=== PATIENT | male | born 1990 | race African-American/Black ===

== ENCOUNTER 2020-04-22 09:32 | Emergency (ER) | payer OTHER ==
[2020-04-22 09:40] VITALS: BP 138/83; PULSE 68; TEMP 98; BMI 26.2
[2020-04-22 10:41] LABS: BASO % 0.9 % (0-2.0); EOS % 2.4 % (0-4.5); HEMATOCRIT 45.4 % (35.4-49); HEMOGLOBIN 15.4 GM/dL (11.7-16.9); LYMPH % 30.4 % (8-40); MCH 30.2 pg (25.7-33.7); MCHC 33.9 g/dl (32.0-35.9); MEAN CELL VOLUME 89.1 fl (80-96); MEAN PLT VOLUME 8.8 fl (7.5-11.1); MONO % 10.9 % (3.8-10.2); NEUT % 55.4 % (42.8-82.8); PLATELET COUNT 251 K/MM3 (134-434); RBC 5.09 M/mm3 (4.00-5.60); RDW 14.6 % (11.9-15.9); WHITE BLOOD COUNT 6.4 K/mm3 (4.0-10.0)
[2020-04-22 10:44] LABS: INR 1.01 (0.83-1.09); PROTHROMBIN TIME (PATIENT) 12.2 SEC (9.7-13.0)
[2020-04-22 10:47] LABS: ACTIVATED PTT 27.5 SECONDS (25.2-36.5)
[2020-04-22 10:58] LABS: POTASSIUM 4.6 mmol/L (3.5-5.1)
[2020-04-22 11:01] LABS: ALBUMIN 4.2 g/dl (3.4-5.0); CALCIUM 9.4 mg/dL (8.5-10.1)
[2020-04-22 11:03] LABS: BLOOD UREA NITROGEN 10.4 mg/dL (7-18)
[2020-04-22 11:05] LABS: BILIRUBIN,TOTAL 0.6 mg/dL (0.2-1); CREATININE 1.2 mg/dL (0.55-1.3)
[2020-04-22 11:06] LABS: TOT PROT 7.6 g/dl (6.4-8.2)
[2020-04-22 11:57] LABS: EPI CELLS 4 /uL (0-25.1); HYALINE CASTS 1 /uL (0-3.1); PH,URINE 6.5 (5.0-8.0); URINE APPEARANCE Clear; URINE BACTERIA 25 /uL (0-1359); URINE BILIRUBIN Negative (NEGATIVE); URINE COLOR Yellow; URINE GLUCOSE (UA) 100 (NEGATIVE); URINE KETONE Trace (NEGATIVE); URINE LEUK ESTERASE Negative (NEGATIVE); URINE NITRITE Negative (NEGATIVE); URINE PROTEIN Trace (NEGATIVE); URINE RBC 65 /uL (0-23.9); URINE WBC 5 /uL (0-25.8)
== END 2020-04-22 12:14 | disposition home or self-care (01) ==
LOC: JER 09:32 → JERFT 09:32
DX: N43.40 Spermatocele of epididymis, unspecified (principal); R31.21 Asymptomatic microscopic hematuria
CPT/HCPCS: 36415; 76775-TC; 76870-TC; 80053; 81003; 85025; 85610; 85730; 87086; 99285-25

== ENCOUNTER 2021-04-13 17:19 | Emergency (ER) | payer OTHER ==
[2021-04-13 17:57] VITALS: BP 150/88; PULSE 71; TEMP 98; BMI 24.3
[2021-04-14 20:07] LABS: SARS-CoV-2 NAA Not Detected (Not Detected)
== END 2021-04-13 20:35 | disposition home or self-care (01) ==
LOC: JER 17:19
DX: R05.1 Acute cough (principal); J02.9 Acute pharyngitis, unspecified; R07.9 Chest pain, unspecified
CPT/HCPCS: 71045-TC-FY; 87804; 93005; 93010; 99285-25; C9803-CS; U0003; U0005

== ENCOUNTER 2023-01-15 16:23 | Emergency (ER) | payer OTHER ==
[2023-01-15 16:38] VITALS: BP 127/89; PULSE 70; RESP 17; TEMP 99.1; BMI 26.6
== END 2023-01-15 18:07 | disposition home or self-care (01) ==
LOC: JERFT 16:23
DX: R09.81 Nasal congestion (principal); R05.9 Cough, unspecified; R50.9 Fever, unspecified; R53.83 Other fatigue; J01.10 Acute frontal sinusitis, unspecified; Z20.822 Contact with and (suspected) exposure to COVID-19
CPT/HCPCS: 0241U-QW; 71046-TC-FY; 99284-25

== ENCOUNTER 2023-06-12 11:34 | Emergency (ER) | payer SELFPAY ==
[2023-06-12 11:39] VITALS: BP 151/99; PULSE 78; RESP 19; TEMP 98.5; BMI 25.1
== END 2023-06-12 12:55 | disposition home or self-care (01) ==
LOC: JERFT 11:34
DX: Z77.21 Contact with and (suspected) exposure to potentially hazardous body fluids (principal)
CPT/HCPCS: 99281-25